=== PATIENT | female | born 1980 | race Caucasian/White ===

== ENCOUNTER 2017-01-30 05:37 | Day surgery (SDC) | payer OTHER ==
[~2017-01-30] VITALS: Ht 160 cm; Wt 65.7 kg
[~2017-01-30 05:37] MED LIST: ATIVAN0.5 MG PO; CARAFATE1 GM PO; DEXILANT30 MG PO; DEXILANT60 MG PO; FLEXERIL5 MG PO; HYDROCODON-ACE1 EAC9 PO; MIRENA52 MG IY; NAPROSYN500 MG PO; PROAIR HFA8.5 GM IH; SUDAFED 12-HOU120 MG PO; ULTRAM50 MG PO; ZYRTEC10 M3 PO
[2017-01-30 07:00] VITALS: BP 121/67
[2017-01-30 10:40] VITALS: BP 126/65
[2017-01-30 11:24] VITALS: BP 133/75
== END 2017-01-30 11:25 | disposition home or self-care (01) ==
LOC: SDC 05:37
PROC: 09SM0ZZ Reposition Nasal Septum, Open Approach (ICD-10-PCS; principal; 2017-01-30)
PROC: 09BL0ZZ Excision of Nasal Turbinate, Open Approach (ICD-10-PCS; principal; 2017-01-30)
DX: J34.2 Deviated nasal septum (principal); J31.0 Chronic rhinitis; J45.909 Unspecified asthma, uncomplicated; Z87.891 Personal history of nicotine dependence; I10 Essential (primary) hypertension; K21.9 Gastro-esophageal reflux disease without esophagitis
CPT/HCPCS: J0330; J0690; J2250; J2405; J2765; J3010; J3301; J7050